=== PATIENT | male | born 1980 | race Caucasian/White ===

== ENCOUNTER 2022-01-31 11:33 | Emergency (ER) | payer MEDICAID ==
[2022-01-31] MEDS ORDERED: Diphtheria,Pertussis(Acell),Tetanus Vaccine 0.5 ML Syringe IM ONE (11:53)
== END 2022-01-31 13:50 | disposition home or self-care (01) ==
LOC: FB.ED 11:33
DX: S51.812A Laceration without foreign body of left forearm, initial encounter (principal); Z23 Encounter for immunization; W26.0XXA Contact with knife, initial encounter
CPT/HCPCS: 12002; 12032; 90471; 90715; 99282-25; 99283